=== PATIENT | female | born 1950 | race Caucasian/White ===

== ENCOUNTER → 2021-04-15 | Outpatient (CLI) | payer OTHER | LOC: NM 08:10 | DX: C50.411 Malignant neoplasm of upper-outer quadrant of right female breast (principal) | CPT/HCPCS: 78306; A9503 ==

== ENCOUNTER 2021-08-25 12:45 | Emergency (ER) | payer OTHER ==
[2021-08-25] MEDS ORDERED: Voltaren Gel 1 % TOP (15:40)
== END 2021-08-25 16:15 | disposition home or self-care (01) ==
LOC: ER1 12:45
DX: M25.571 Pain in right ankle and joints of right foot (principal); M79.661 Pain in right lower leg; I10 Essential (primary) hypertension; Z79.01 Long term (current) use of anticoagulants; Z91.013 Allergy to seafood; Z86.718 Personal history of other venous thrombosis and embolism; Z85.3 Personal history of malignant neoplasm of breast
CPT/HCPCS: 73552; 73590; 93971; 99284

== ENCOUNTER 2022-01-02 16:15 | Emergency (ER) | payer MEDICARE, OTHER ==
[~2022-01-02 16:15] MED LIST: Voltaren Gel 1 % TOP
[2022-01-02 18:12] LABS: HEMOGLOBIN 14.2 gm/dl (12.3-15.3); RED BLOOD COUNT 4.76 M/UL (4.00-5.10); WHITE BLOOD COUNT 13.1 K/UL (4.5-11.0)
[2022-01-02 18:33] LABS: BUN/CREATININE RATIO 18 (0-10)
[2022-01-02] MEDS ORDERED: [UNRECOGNIZED DRUG - REMARK] (20:54)
[2022-01-02] MEDS ORDERED: ECHOCARDIOGRAM (20:54)
== END 2022-01-02 21:01 | disposition home or self-care (01) ==
LOC: ER1 16:15
PROVIDERS: Emergency Medicine
DX: G45.9 Transient cerebral ischemic attack, unspecified (principal); R51.9 Headache, unspecified; G89.29 Other chronic pain
CPT/HCPCS: 70450; 71045; 80053; 82550; 82553; 84484; 85025; 93005; 99285